=== PATIENT | male | born 1970 | race Caucasian/White ===

== ENCOUNTER 2016-06-03 18:56 | Emergency (ER) | payer OTHER ==
[~2016-06-03 18:56] MED LIST: NO MEDICATIONS
[2016-11-27] MEDS ORDERED: NO MEDICATIONS (16:21)
== END 2016-06-03 19:38 | disposition home or self-care (01) ==
LOC: SED 18:56
DX: L02.811 Cutaneous abscess of head [any part, except face] (principal); F17.210 Nicotine dependence, cigarettes, uncomplicated
CPT/HCPCS: 10060; 99283

== ENCOUNTER 2016-06-09 07:47 | Emergency (ER) | payer OTHER ==
--- NOTE | ~2016-06-09 | CT4 ---
[facility] A Service of [facility] RADIOLOGY TEXT RESULTS PATIENT: EDITA JENKINS LOCATION: SED : 70 UNIT #: [id number] AGE: [address]: Fatimah Toledo MD SEX: M ORDER DR: [id number] [address] [address] [id number] MR#: [id number] #: [id number] NAME: EDITA JENKINS : 1970 SEX: M STUDY DATE/TIME: 06/09/2016 9:04 UNIT: SED ROOM: STUDY DESCRIPTION: CT Abd and Pelv Wo Cont Attending Physician: Fatimah Toledo M.D. Referring Physician: Fatimah Toledo M.D. Ordering Physician: Fatimah Toledo M.D. Primary Care Physician: Primary Care Physician No MEDICAL IMAGING REPORT This report is preliminary unless electronic signature is present. EXAM CT abdomen and pelvis 06/09/2016 HISTORY Abdomen cramping, dizzy, nausea, three days. Hiccoughs two days. Difficulty urinating today. Current smoker. TECHNIQUE CT abdomen and pelvis performed without administration of oral or intravenous contrast. No prior studies for comparison. This CT exam was performed with one or more of the following radiation dose reduction techniques: automatic exposure control, adjustment of mA and/or kV according to patient size, and iterative reconstruction. FINDINGS No acute disease at lung bases. Densely calcified granuloma left lung base. Inferior heart and pericardium unremarkable. Liver, gallbladder, spleen notable for rounded hypodensity in the spleen measuring approximately 1.9 cm in diameter, most consistent with splenic cyst. If not previously evaluated, it is best fully characterized with ultrasound or contrast enhanced CT. The pancreas is normal. The adrenal, kidneys, ureters unremarkable. CT pelvis: No inguinal adenopathy. Urinary bladder contains Heath catheter and small volume of urine. Correlate with catheter function. Small amount of air in urinary bladder favored to be related to catheter insertion. No renal, ureteral or bladder calculi. No urinary obstruction or perinephric inflammatory change. No free fluid in pelvis. No pelvic or retroperitoneal adenopathy. Distal esophagus, stomach, small bowel unremarkable. Appendix normal. Colon unremarkable. Scattered atherosclerotic arterial calcifications but no aneurysm. Bilateral L5 spondylolysis with resulting 1 cm anterolisthesis L5 on S1. Marked disc degenerative change L5-S1 as STS. [facility] A Service of [facility] & [facility] RADIOLOGY TEXT RESULTS PATIENT: EDITA JENKINS LOCATION: [facility] [place] : 70 UNIT #: [id number] AGE: [address]: Fatimah Toledo MD SEX: M ORDER DR: well. Vacuum disc phenomenon. No spinal stenosis, but there is narrowing of the bilateral L5-S1 neural foramina and bilateral L5 exiting nerve irritation or tosha impingement is a consideration. No acute appearing bony abnormality. IMPRESSION 1. No clearly acute abnormality is seen in the abdomen or pelvis. The gallbladder, pancreas, kidneys, ureters and appendix are all normal in appearance. 2. There is a Heath catheter in the urinary bladder. A small volume of urine remains in the bladder. Correlate with catheter function. Small amount of air in urinary bladder favored to reflect catheter insertion. Urinary bladder otherwise unremarkable. 3. Scattered atherosclerotic arterial calcifications. 4. 1.9 cm probably cyst anterior spleen. Best definitively characterized with ultrasound or contrast enhanced CT. 5. Bilateral L5 spondylolysis with resulting 1 cm anterolisthesis L5 on S1. Associated severe degenerative change in the L5-S1 disc with vacuum disc phenomenon and marked disc space narrowing. There is no resulting spinal stenosis but there is narrowing of the bilateral neural foramina and exiting L5 nerve. Irritation or tosha impingement is a consideration. 1. Dictated by... Bautista Gallegos M.D. THIS IS AN ELECTRONICALLY VERIFIED REPORT Bautista Gallegos M.D. at 06/09/2016 4:49 PM Kalia TD: 06/09/2016 10:41 JOB #: [id number] MEDICAL IMAGING REPORT Page 1 of 1
[2016-06-09 08:34] LABS: URINE SOURCE CLEAN CATCH
[2016-06-09 08:37] LABS: BASOPHIL# 0.1 X10e3 (0-0.3); BASOPHIL% 0.5 % (0-2.5); EOSINOPHIL% 0.1 % (0.0-7.0); HEMATOCRIT 49.8 % (38.0-50.0); HEMOGLOBIN 17.4 gm/dL (13.0-16.0); LYMPHOCYTE# 1.6 X10e3 (1.0-3.5); LYMPHOCYTE% 13.6 % (17.0-45.0); MEAN CELL VOLUME 94.2 FL (83-96); MEAN PLATELET VOLUME 9.4 FL (6.5-11.5); MONOCYTE# 0.8 X10e3 (0-1.0); MONOCYTE% 6.9 % (3.0-12.0); NEUTROPHIL# 9.4 X10e3 (1.5-7.1); NEUTROPHIL% 78.9 % (40-75); PLATELET COUNT 271 X10e3 (140-420); RED BLOOD COUNT 5.28 X10e (3.90-5.60); RED CELL DISTRIBUTION WIDTH 13.1 % (11.0-15.5); WHITE BLOOD COUNT 11.9 X10e3 (4.0-10.5)
[2016-06-09 08:37] LABS: URINE APPEARANCE CLEAR; URINE BLOOD 3+ (NEG); URINE COLOR DK YELLOW; URINE GLUCOSE NEG (NORM); URINE LEUKOCYTE ESTERASE NEG (NEG); URINE NITRATE NEG (NEG); URINE PROTEIN 1+ (NEG); URINE UROBILINOGEN 0.2 MG/DL (NORM)
[2016-06-09 08:40] LABS: URINE KETONE 2+ (NEG)
[2016-06-09 08:41] LABS: MICRO INDICATED? YES; URINE BILIRUBIN NEG (NEG)
[2016-06-09 08:41] LABS: DIFF IND NO
[2016-06-09 08:46] LABS: CULTURE INDICATED? YES; URINE BACTERIA 1+ (NEG); URINE SQUAMOUS EPITHELIAL CELL FEW /[HPF]
[2016-06-09 08:48] LABS: URINE HYALINE CAST 0-2 /[HPF]; URINE MUCUS PRESENT
[2016-06-09 08:50] LABS: AMPHETAMINE POS (NEG); BARBITURATES NEG (NEG); BENZODIAZEPINES POS (NEG); COCAINE NEG (NEG); MARIJUANA NEG (NEG); OPIATES NEG (NEG); TRICYCLIC ANTIDEPRESSANTS NEG (NEG); U METHADONE NEG (NEG)
[2016-06-09 08:57] LABS: ALBUMIN SERUM 4.5 g/dL (3.5-5.0); ALKALINE PHOSPHATASE 70 U/L (32-92); ALT (SGPT) 13 U/L (10-40); AST (SGOT) 24 U/L (10-42); BILIRUBIN, DIRECT 0.1 mg/dL (0.0-0.2); BILIRUBIN,INDIRECT 0.9 mg/dL (0.0-0.9); BLOOD UREA NITROGEN 23 mg/dL (9-23); BUN/CREATININE RATIO 19.16; CALCIUM SERUM 9.4 mg/dL (8.4-10.2); CARBON DIOXIDE 31 mmol/L (22-31); CHLORIDE 94 mmol/L (100-111); CPK (CREATINE PHOSPHOKINASE) 85 IU/L (36-174); CREATININE SERUM 1.2 mg/dL (0.6-1.4); GLOM FILT RATE Estimated 72.6 mL/min (>60); GLUCOSE FASTING 114 mg/dL (70-110); LIPASE 39 U/L (22-51); POTASSIUM 3.2 mmol/L (3.5-5.1); PROTEIN TOTAL SERUM 7.5 g/dL (6.0-8.3); SODIUM 137 mmol/L (135-145)
[2016-06-09 08:59] LABS: ALCOHOL BLOOD <5 mg/dL (0)
[2016-11-27] MEDS ORDERED: NO MEDICATIONS (16:21)
== END 2016-06-09 11:47 | disposition home or self-care (01) ==
LOC: SED 07:47
PROVIDERS: Emergency Medicine
DX: E86.0 Dehydration (principal); R10.84 Generalized abdominal pain; F17.210 Nicotine dependence, cigarettes, uncomplicated
CPT/HCPCS: 36415; 51702; 74176; 80048; 80076; 80307; 81003; 82550; 83690; 85025; 87086; 96361; 96374; 99284; G0480; J2405

== ENCOUNTER 2016-06-10 11:41 | Observation (INO) | payer OTHER ==
--- NOTE | ~2016-06-10 | EKG ---
PATIENT: EDITA JENKINS UNIT #: [id number] Ventricular Rate: 84 BPM Atrial Rate: 84 BPM P-R Interval: 148 ms QRS Duration: 92 ms Q-T Interval: 422 ms QTC Calculation(Bezet): 498 ms P [place]: 44 degrees Calculated R [place]: 9 degrees Calculated T [place]: 145 degrees Diagnosis Line: Normal sinus rhythm Diagnosis Line: Left ventricular hypertrophy with repolarization Diagnosis Line: abnormality Diagnosis Line: Prolonged QT T wave abnormality, consider Diagnosis Line: anterolateral ischemia Diagnosis Line: Abnormal ECG Diagnosis Line: No previous ECGs available Diagnosis Line: Confirmed by NEELA HOLDEN MD ([id number]) on 06/14/2016 Diagnosis Line: 8:00:12 PM INTERPRETING MD: NAVIN WALLER
--- NOTE | ~2016-06-10 | HP ---
Unit #: [id number] #: [id number] Patient: EDITA JENKINS [id number] [address] [place], [place] [address] [id number] MR#: [id number] NAME: EDITA JENKINS ROOM: 469 Age: 45 Sex: M Admission Date: 06/10/2016 : 1970 Attending Physician: Jeniffer Kam M.D. Primary Care Physician: No Primary Care Physician HISTORY AND PHYSICAL CHIEF COMPLAINT Intractable nausea and vomiting. HISTORY OF PRESENT ILLNESS The patient is a 45-year-old male who presented with intractable nausea and vomiting to the emergency room on 06/09/2016. He states that he has had this episode a few years ago and eventually the etiology was unknown. He admits to being drinking this past few days prior to presentation. He does not really notice any "alcohol poison." Other than that, he described associated nausea, vomiting and being unable to keep anything down. Twenty-four hours ago he states that he presented to the emergency room and he was evaluated with a CAT scan of his abdomen and pelvis on 06/09/2016, which identified no clear abnormality throughout the abdomen and pelvis. Gallbladder, pancreas, kidneys, ureters were all normal in appearance. The CT scan did identify a 1.9 cyst in the anterior spleen and some L5 spondylosis and anterolisthesis of L5 on S1. He was hypokalemic in the emergency room as well. PAST MEDICAL HISTORY Negative. PAST SURGICAL HISTORY Surgery on his left thumb. SOCIAL HISTORY The patient smokes a pack of cigarettes a day and drinks alcohol. 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 FAMILY HISTORY Dad with hypertension and diabetes mellitus in sister who was diagnosed at age 50. ALLERGIES No known drug allergies. REVIEW OF SYSTEMS He has vomited about 12 times today prior to presentation in the emergency room. No fever or rash. No hematochezia, hematemesis. No black tarry stools. No syncopal episodes. The patient feels very weak. A complete 10-point review of systems was done and pertinent positives are as noted. PHYSICAL EXAMINATION GENERAL: Comfortable, not in any distress. VITALS: Blood pressure 118/82, pulse 102, respiratory rate 20, Unit #: [id number] #: [id number] Patient: EVERIDGE,EDITA temperature 97.7, saturating 98% on room air. HEENT: Pupils are equal and reactive to light and accommodation. NECK: Supple without thyromegaly. Pharynx not erythematous. HEART: First and second heart sounds only. ABDOMEN: Full, moves with respirations, soft, no organomegaly. SKIN: Warm and dry with no rashes. EXTREMITIES: No lower extremity edema. LYMPH: No large peripheral lymphadenopathy that I could appreciate. PSYCHIATRIC: Did not seem to respond to external stimuli. Alert and oriented times three. NEUROLOGIC: Moves all extremities spontaneously. DIAGNOSTIC STUDIES LABORATORY: Glucose 109, BUN 14, creatinine 1.2, sodium 114, potassium 3.2, chloride 100. CBC with white blood cell count 17.3, hemoglobin 18.0, hematocrit 52.3, with a platelet count of 263, neutrophil count of 83.9. Urinalysis with specific gravity of 1020, protein 1+, ketones 2+, blood 3+, RBC 10-25. ASSESSMENT/ PLAN 1. Intractable nausea and vomiting. Questionable etiology. Probably a virus. No clear etiology can be identified at this time. 2. Severe dehydration. Would aggressively rehydrate the patient. Give him a bolus of 1 liter normal saline and then follow up with D5 half normal saline at 160 mL per hour with 20 mEq of potassium chloride per liter. 3. For GI prophylaxis will put him on Protonix 40 mg IV daily and for DVT prophylaxis put him on SCDs while he is bed. 4. Should his symptoms resolve by morning, would advance his diet and should he be able to tolerate an oral diet would plan to discharge him home. 5. Goal of care, full code. Dictated by Rashel Robertson TD: 06/11/2016 06:30 JOB #: [id number] HISTORY AND PHYSICAL Page 1 of 1 X Kelin Dodge MD HISTORY AND PHYSICAL
[2016-06-10 12:25] LABS: BASOPHIL# 0.1 X10e3 (0-0.3); BASOPHIL% 0.4 % (0-2.5); EOSINOPHIL# 0.1 X10e3 (0-0.7); EOSINOPHIL% 0.4 % (0.0-7.0); HEMATOCRIT 52.3 % (38.0-50.0); LYMPHOCYTE# 1.9 X10e3 (1.0-3.5); LYMPHOCYTE% 10.8 % (17.0-45.0); MEAN CELL VOLUME 95.4 FL (83-96); MEAN CORPUSCULAR HEMOGLOBIN 32.9 PG (28-34); MEAN CORPUSCULAR HGB CONC 34.5 g/dL (30-36); MEAN PLATELET VOLUME 9.6 FL (6.5-11.5); MONOCYTE# 0.8 X10e3 (0-1.0); MONOCYTE% 4.5 % (3.0-12.0); NEUTROPHIL# 14.5 X10e3 (1.5-7.1); NEUTROPHIL% 83.9 % (40-75); PLATELET COUNT 263 X10e3 (140-420); RED BLOOD COUNT 5.48 X10e (3.90-5.60); RED CELL DISTRIBUTION WIDTH 13.3 % (11.0-15.5); WHITE BLOOD COUNT 17.3 X10e3 (4.0-10.5)
[2016-06-10 12:26] LABS: DIFF IND NO
[2016-06-10 12:39] LABS: BUN/CREATININE RATIO 11.66; CALCIUM SERUM 9.4 mg/dL (8.4-10.2); CREATININE SERUM 1.2 mg/dL (0.6-1.4); GLOM FILT RATE Estimated 72.6 mL/min (>60); POTASSIUM 3.2 mmol/L (3.5-5.1)
[2016-06-11 03:30] LABS: BASOPHIL# 0.1 X10e3 (0-0.3); BASOPHIL% 0.5 % (0-2.5); EOSINOPHIL# 0.1 X10e3 (0-0.7); EOSINOPHIL% 0.9 % (0.0-7.0); HEMATOCRIT 41.8 % (38.0-50.0); LYMPHOCYTE% 37.1 % (17.0-45.0); MEAN CELL VOLUME 96.2 FL (83-96); MEAN CORPUSCULAR HEMOGLOBIN 32.2 PG (28-34); MEAN CORPUSCULAR HGB CONC 33.5 g/dL (30-36); MEAN PLATELET VOLUME 9.6 FL (6.5-11.5); MONOCYTE# 0.7 X10e3 (0-1.0); MONOCYTE% 6.2 % (3.0-12.0); NEUTROPHIL% 55.3 % (40-75); PLATELET COUNT 199 X10e3 (140-420); RED BLOOD COUNT 4.35 X10e (3.90-5.60); RED CELL DISTRIBUTION WIDTH 13.1 % (11.0-15.5); WHITE BLOOD COUNT 10.9 X10e3 (4.0-10.5)
[2016-06-11 03:34] LABS: DIFF IND NO
[2016-06-11 03:55] LABS: CALCIUM SERUM 7.9 mg/dL (8.4-10.2); CREATININE SERUM 1.1 mg/dL (0.6-1.4); GLOM FILT RATE Estimated 80.7 mL/min (>60); MAGNESIUM 1.8 mg/dL (1.6-3.0); PHOSPHOROUS 2.7 mg/dL (2.5-4.6)
[2016-06-11] MEDS ORDERED: PEPCID AC20 M2 PO (11:19)
[2016-06-11] MEDS ORDERED: ZOFRAN ODT4 MG PO (11:20)
[2016-06-12 08:30] LABS: POC - CKMB 2.6 ng/mL (0.0-7.9)
[2016-06-12 08:31] LABS: POC - MYOGLOBIN 86.5 ng/mL (0.0-169.0); POC - TROPONIN 0.07 ng/mL (<=0.05)
[2016-06-12 08:33] LABS: POC - CKMB 2.1 ng/mL (0.0-7.9); POC - MYOGLOBIN 68.8 ng/mL (0.0-169.0); POC - TROPONIN <0.05 ng/mL (<=0.05)
[2016-11-27] MEDS ORDERED: NO MEDICATIONS (16:21)
== END 2016-06-11 12:00 | disposition home or self-care (01) ==
LOC: SED 11:41 → SEDOF 14:54 → C4C 18:07
PROVIDERS: Family Medicine; Nurse Practitioner Family
DX: R11.2 Nausea with vomiting, unspecified (principal); E86.0 Dehydration; R10.9 Unspecified abdominal pain; F17.210 Nicotine dependence, cigarettes, uncomplicated; Z83.3 Family history of diabetes mellitus; Z82.49 Family history of ischemic heart disease and other diseases of the circulatory system
CPT/HCPCS: 36415; 80048; 82553; 83036; 83735; 83874; 84100; 84132; 84443; 84484; 85025; 87651; 93005; 96361; 96374; 96375; 96376; 99285; C9113; G0378; J2405; J2550; J3475